=== PATIENT | male | born 1970 | race Caucasian/White ===

== ENCOUNTER 2017-01-20 19:57 | Emergency (ER) | payer SELFPAY ==
[~2017-01-20] VITALS: Ht 190.5 cm; Wt 140.6 kg
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
[~2017-01-20 19:57] MED LIST: ASPIRIN PO; CALAN PO; CERTAGEN PO; DYRENIUM50 MG PO; FISH OIL500 M2 PO; GLYNASE PO; ILOTYCIN1 G1 OU; INVOKANA100 MG PO; JANUVIA25 MG; LISINOPRIL PO; LORTAB 5-325 M1 EACH PO; TOPROL XL PO; ZOCOR PO
== END 2017-01-20 22:18 | disposition home or self-care (01) ==
LOC: SED 19:57
DX: S16.1XXA Strain of muscle, fascia and tendon at neck level, initial encounter (principal); E11.9 Type 2 diabetes mellitus without complications; I10 Essential (primary) hypertension; M19.90 Unspecified osteoarthritis, unspecified site; Z79.899 Other long term (current) drug therapy; V49.49XA Driver injured in collision with other motor vehicles in traffic accident, initial encounter; Y93.89 Activity, other specified; Y92.410 Unspecified street and highway as the place of occurrence of the external cause
CPT/HCPCS: 72040; 99284